=== PATIENT | male | born 1985 | race Two or more races ===

== ENCOUNTER 2021-09-26 04:42 | Emergency (ER) | payer OTHER ==
[~2021-09-26] VITALS: Ht 180.3 cm; Wt 86.2 kg
--- NOTE | 2021-09-26 04:51 | NUR ---
Dr. Bean at bedside for MSE.
[2021-09-26] MEDS ORDERED: HYDROCODONE/APAP 5-325MG TABLET ONE (05:00)
[2021-09-26] MEDS ORDERED: CEFTRIAXONE /D5W 50ML IVPB **ER PYXIS IV ONE (05:00)
[2021-09-26] MEDS ORDERED: ACETAMINOPHEN ES 500 MG TABLET PO ONE (05:00)
[2021-09-26] MEDS ORDERED: CEFTRIAXONE 1 G in IV DEXTROSE 5% 50 ML IV ONE (05:00)
[2021-09-26] MEDS ORDERED: CLINDAMYCIN PHOSPHATE IV 900 MG in IV DEXTROSE 5% 100 ML IV ONE (05:00)
[2021-09-26] MEDS ORDERED: HYDROCODONE/APAP 5-325MG TABLET PO ONE (05:00)
[2021-09-26] MEDS ORDERED: ACETAMINOPHEN ES 500 MG TABLET ONE (05:00)
[2021-09-26] MEDS ORDERED: CLINDAMYCIN 900MG/D5W 100ML IVPB **ER PYXIS ONLY IJ ONE (05:00)
[2021-09-26] MEDS ORDERED: CLIN300C12 PO (05:02)
[2021-09-26] MEDS ORDERED: CEPH500T PO (05:02)
[2021-09-26] MEDS ORDERED: HYDR-4209 PO (05:02)
--- NOTE | 2021-09-26 06:00 | NUR ---
Patient given written and verbal discharge instructions. Patient verbalizes understanding of instructions. Patient is ambulatory with steady gait. Refuses offer of senior living placement. Patient given list of available shelters in surrounding area. Patient provided food per patient request, out of ER with steady gait, no acute signs of distress, VSS, all belongings taken, refuses all other services at this time.
[2021-09-26 06:01] VITALS: BP 145/90
== END 2021-09-26 06:02 | disposition home or self-care (01) ==
LOC: ER 04:42
DX: S50.862A Insect bite (nonvenomous) of left forearm, initial encounter (principal); L03.114 Cellulitis of left upper limb; W57.XXXA Bitten or stung by nonvenomous insect and other nonvenomous arthropods, initial encounter; Y92.89 Other specified places as the place of occurrence of the external cause; Z88.0 Allergy status to penicillin; R03.0 Elevated blood-pressure reading, without diagnosis of hypertension; Z59.00 Homelessness unspecified
CPT/HCPCS: 96374; 96375; 99284; J0696; J3490; A4663; A9150